=== PATIENT | male | born 1980 | race African-American/Black ===

== ENCOUNTER 2020-02-17 16:50 | Inpatient (IN) | payer OTHER ==
--- NOTE | 2020-02-17 18:05 | BHS.RME ---
Substance Use & Tx History - Substance Use History Heroin Substance amount: 8 -10 bags Frequency of use: Daily Substance route: Inhalation (ex: sniffing or snorting) Benzodiazepines Substance amount: 2 Frequency of use: Daily Substance route: Oral - Last Treatment Where was last treatment: Opioid Treatment Program (OTP) ([facility] 75 mg) CIWA Nausea/Vomitin-No Nausea/No Vomiting Muscle Tremors: None Anxiety: 0-No Anxiety, at Ease Agitation: 1-Slight > Activity Paroxysmal Sweats: No Perspiration Orientation: 1-Uncertain about Date Tacttile Disturbances: 0-None Auditory Disturbances: 0-None Visual Disturbances: 0-None Headache: 0-None Present CIWA-Ar Total Score: 2
--- NOTE | 2020-02-17 18:38 | HP ---
CIWA Score Nausea/Vomitin-No Nausea/No Vomiting Muscle Tremors: None Anxiety: 0-No Anxiety, at Ease Agitation: 1-Slight > Activity Paroxysmal Sweats: No Perspiration Orientation: 1-Uncertain about Date Tacttile Disturbances: 0-None Auditory Disturbances: 0-None Visual Disturbances: 0-None Headache: 0-None Present CIWA-Ar Total Score: 2 - Admission Criteria OASAS Guidelines: Admission for Medically Managed Detox: Requires at least one of the followin. CIWA greater than 12 2. Seizures within the past 24 hours 3. Delirium tremens within the past 24 hours 4. Hallucinations within the past 24 hours 5. Acute intervention needed for co occurring medical disorder 6. Acute intervention needed for co occurring psychiatric disorder 7. Severe withdrawal that cannot be handled at a lower level of care (continued vomiting, continued diarrhea, abnormal vital signs) requiring intravenous medication and/or fluids 8. Admission ROS [facility] Allergies/Adverse Reactions: Allergies Allergy/AdvReac Type Severity Reaction Status Date / Time No Known Allergies Allergy Verified 02/17/20 18:07 History of Present Illness: 39 y.o. male requesting detox from benzodiazepine use , reports xanax 2 /day . Pt is very poor historian due to sedation , falls asleep frequently during interview , awakened w/ difficulty w/ verbal stimuli . reports [facility] @ [facility] - no card , has 1 empty bottle dated 02/04/2020 30mg pt claims he is taking " 75 or 80 mg " /day pt has meds dated 12/04/2019 for enalapril 20, hctz 25 mg , mirtazapine 15 . Unclear compliance w/ meds . Pt 's current BP is 106/76 P 79 , will hold additional meds 2/2 risk of hypotension . PMHX : HTN Exam Limitations: Clinical Condition, Intoxication - Review of Systems Constitutional: No Symptoms Reported EENT: reports: No Symptoms Reported Respiratory: reports: No Symptoms reported Cardiac: reports: No Symptoms Reported GI: reports: No Symptoms Reported : reports: No Symptoms Reported Musculoskeletal: reports: No Symptoms Reported Integumentary: reports: No Symptoms Reported Neuro: reports: No Symptoms reported Endocrine: reports: No Symptoms Reported Hematology: reports: No Symptoms Reported Psychiatric: reports: Agitated, Disorientated Patient History - Smoking Cessation Smoking history: Unknown if ever smoked Admission Physical Exam [facility] - Physical General Appearance: Yes: Disheveled, Intoxicated HEENTM: Yes: Normocephalic, Normal Voice Respiratory: Yes: Chest Non-Tender, Lungs Clear, Normal Breath Sounds, No Respiratory Distress, No Accessory Muscle Use Neck: Yes: No masses,lesions,Nodules, Trachea in good position Cardiology: Yes: Regular Rhythm, Regular Rate, S1, S2 Abdominal: Yes: Non Tender, Soft Back: Yes: Normal Inspection Musculoskeletal: Yes: Other (staggering gait) Extremities: Yes: Normal Range of Motion, Non-Tender, Swelling (slight @ r ankle w/ vertical scar) Neurological: Yes: Motor Strength 5/5, Disoriented, Depressed Affect Integumentary: Yes: Warm - Diagnostic (1) Opioid dependence on agonist therapy Current Visit: Yes Status: Chronic (2) Cocaine use disorder Current Visit: Yes Status: Chronic (3) Sedative dependence with current use Current Visit: Yes Status: Acute (4) Benzodiazepine intoxication Current Visit: Yes Status: Acute Inpatient Rehab Admission - Rehab Decision to Admit Inpatient rehab admission?: No
[2020-02-17] MEDS ORDERED: ACETAMINOPHEN 325 MG TABLET (FP) PO PRN ×2 (19:00)
[2020-02-17] MEDS ORDERED: IBUPROFEN 400 MG TABLET (FP) PO PRN (19:00)
[2020-02-17] MEDS ORDERED: MAGNESIUM HYDROX 2400MG/30ML ORAL SUSPENSION 30 ML CUP PO PRN (19:00)
[2020-02-17] MEDS ORDERED: METHOCARBAMOL 500 MG TABLET PO PRN (19:00)
[2020-02-17] MEDS ORDERED: MENTHOL/PHENOL 1 EACH UD MM PRN (19:00)
[2020-02-17] MEDS ORDERED: BISMUTH SUBSALICYLATE 524 MG/30 ML UD PO PRN (19:00)
[2020-02-17] MEDS ORDERED: MELATONIN 5 MG TABLETS PO PRN (19:00)
[2020-02-17] MEDS ORDERED: hydrOXYzine PAMOATE 25 MG CAPSULE (FP) PO PRN (19:00)
[2020-02-17] MEDS ORDERED: MAG HYDROX/AL HYDROX/SIMETH 30 ML UNIT-DOSE CUP PO PRN (19:00)
[2020-02-17] MEDS ORDERED: MAGNESIUM CITRATE 300 ML BOTTLE PO PRN (19:00)
[2020-02-17 23:14] VITALS: BMI 24.3
[2020-02-17] MEDS: THIAMINE HCL 100 MG TABLET (FP) PO SCH (23:31)
[2020-02-18] MEDS ORDERED: diazePAM 5 MG TABLET PO PRN (00:19)
[2020-02-18] MEDS: diazePAM 5 MG TABLET PO SCH ×3 (07:25→22:35)
[2020-02-18] MEDS ORDERED: cloNIDine HCL 0.1 MG TABLET PO PRN (08:56)
--- NOTE | 2020-02-18 09:03 | PN ---
[facility] CIWA - CIWA Score Nausea/Vomitin-Mild Nausea/No Vomiting Muscle Tremors: 3 Anxiety: 3 Agitation: 1-Slight > Activity Paroxysmal Sweats: 1-Minimal Palms Moist Orientation: 0-Oriented Tacttile Disturbances: 1-Very Mild Itch/Numbness Auditory Disturbances: 0-None Visual Disturbances: 0-None Headache: 2-Mild CIWA-Ar Total Score: 12 S COWS - Scale Resting Pulse: 0= [place] 80 or Below Sweatin= Chills/Flushing Restless Observation: 0= Sits Still Pupil Size: 1= Pupils >than Normal Bone or Joint Aches: 1= Mild Discomfort Runny Nose/ Eye Tearin= None GI Upset > 30mins: 2= Nausea/Diarrhea Tremor Observation of Outstretched Hands: 2= Slight Tremor Visible Yawning Observation: 0= None Anxiety or Irritability: 2=Irritable/Anxious Goose Flesh Skin: 0=Smooth Skin COWS Score: 9 S Progress Note (SOAP) Subjective: 39 years old male admitted on 02/17/20 for benzo and opiate withdrawal sx management mr mcintyre was taking methadone 30mg po daily last dose 02/04/20 positive opiate urine toxicology upon admission methadone for opiate detox initiated ensure 120 ml po bid initiated mr mcintyre prefers suboxone maintenance program in comparison to methadone program Objective: 02/18/20 11:06 Vital Signs - 24 hr 02/17/20 02/17/20 02/18/20 23:08 23:10 00:28 Temperature 97.1 F L 97.1 F L Pulse Rate 69 69 Respiratory 18 18 18 Rate Blood Pressure 107/72 107/72 O2 Sat by Pulse 100 Oximetry (%) 02/18/20 02/18/20 02/18/20 03:23 06:35 08:54 Temperature 97.7 F 97.8 F Pulse Rate 68 60 Respiratory 18 18 20 Rate Blood Pressure 116/72 118/80 O2 Sat by Pulse 98 Oximetry (%) Laboratory Tests 02/18/20 02/18/20 08:30 08:30 WBC 3.2 L RBC 4.41 Hgb 11.7 Hct 36.4 MCV 82.5 MCH 26.5 MCHC 32.1 RDW 13.9 Plt Count 299 MPV 9.2 Sodium 141 Potassium 3.3 L Chloride 99 Carbon Dioxide 35 H Anion Gap 7 L BUN 6.8 L Creatinine 0.8 Est GFR (CKD-EPI)AfAm 129.51 Est GFR (CKD-EPI)NonAf 111.74 Random Glucose 98 Calcium 9.2 Total Bilirubin 0.8 AST 24 ALT 25 Alkaline Phosphatase 65 Total Protein 6.5 Albumin 3.1 L 02/18/20 11:08 low K+ received K+ supplement 40mEq x 1 repeat K+ serum level Assessment: 02/18/20 11:09 benzo and opiate withdrawal Plan: valium and methadone regiment
--- NOTE | 2020-02-18 09:45 | CONSULT ---
[facility] Psychiatric Consult - Data Date of interview: 02/18/20 Admission source: [facility] Identifying data: Patient is a 39 year old single male, father of one, unemployed, domiciled, and is supported by [facility]. This is patient's first admission to detox at [facility]. Patient admitted to for opioid, cocaine and sedative dependence. Substance Abuse History: History of opioid, benzodiazepine, and cocaine use. Medical History: hypertension Psychiatric History: Mr. Gallegos's first psychiatric contact occured one year ago at the [facility] clinic after seeing a psychiatrist due to feeling sad and depressed. He was diagnosed with depression and prescribed Zoloft 50mg daily + Mirtzapine 15mg HS. Mr. Gallegos reports not seeing the psychiatrist in several months. Patient denies history of psychiatric hospitalization and suicide attempt. At present patient reports difficulty sleeping. Physical/Sexual Abuse/Trauma History: denies. Mental Status Exam - Mental Status Exam Alert and Oriented to: Time, Place, Person Cognitive Function: Good Patient Appearance: Well Groomed Mood: Withdrawn Affect: Mood Congruent Patient Behavior: Fatigued Speech Pattern: Appropriate Voice Loudness: Mildly Soft/Quiet Thought Process: Goal Oriented Thought Disorder: Not Present Hallucinations: Denies Suicidal Ideation: Denies Homicidal Ideation: Denies Insight/Judgement: Poor Sleep: Poorly Appetite: Fair Muscle strength/Tone: Normal Gait/Station: Normal Psychiatric Findings - Problem List ([place] 1, 2,3) (1) Substance induced mood disorder Current Visit: Yes Status: Acute (2) Benzodiazepine intoxication Current Visit: Yes Status: Acute (3) Sedative dependence with current use Current Visit: Yes Status: Acute (4) Cocaine use disorder Current Visit: Yes Status: Chronic (5) Opioid dependence on agonist therapy Current Visit: Yes Status: Chronic (6) Substance-induced sleep disorder Current Visit: Yes Status: Acute (7) History of depression Current Visit: Yes Status: Acute - Initial Treatment Plan Initial Treatment Plan: Psychoeducation provided. Detoxification in progress. Will order Zoloft 50mg daily + Remeron 15mg HS. Benefits and side effects discussed. Verbal consent given.
[2020-02-18] MEDS ORDERED: METHADONE HCL 10 MG TABLET (FOR DETOX USE ONLY) PO ONE (10:00)
[2020-02-18] MEDS: PRENATAL VITAMINS W/ FOLIC ACID TABLET (FP) PO SCH (10:35)
[2020-02-18 10:40] LABS: HEMATOCRIT 36.4 % (35.4-49); HEMOGLOBIN 11.7 GM/dL (11.7-16.9); MCH 26.5 pg (25.7-33.7); MCHC 32.1 g/dl (32.0-35.9); MEAN CELL VOLUME 82.5 fl (80-96); MEAN PLT VOLUME 9.2 fl (7.5-11.1); PLATELET COUNT 299 K/MM3 (134-434); RBC 4.41 M/mm3 (4.00-5.60); RDW 13.9 % (11.9-15.9); WHITE BLOOD COUNT 3.2 K/mm3 (4.0-10.0)
[2020-02-18 10:49] LABS: ALBUMIN 3.1 g/dl (3.4-5.0); BLOOD UREA NITROGEN 6.8 mg/dL (7-18); CALCIUM 9.2 mg/dL (8.5-10.1); CREATININE 0.8 mg/dL (0.55-1.3); POTASSIUM 3.3 mmol/L (3.5-5.1)
[2020-02-18 10:51] LABS: BILIRUBIN,TOTAL 0.8 mg/dL (0.2-1); TOT PROT 6.5 g/dl (6.4-8.2)
[2020-02-18] MEDS ORDERED: POTASSIUM CHLORIDE ORAL LIQUID 20 MEQ/15 ML PO ONE (11:07)
[2020-02-18] MEDS: SERTRALINE HCL 50 MG TABLET (FP) PO SCH (11:46)
--- NOTE | 2020-02-18 14:08 | EKG ---
Test Reason : Blood Pressure : / mmHG Vent. Rate : 065 BPM Atrial Rate : 065 BPM P-R Int : 168 ms QRS Dur : 100 ms QT Int : 444 ms P-R-T Axes : 029 022 -17 degrees QTc Int : 461 ms NORMAL SINUS RHYTHM T WAVE ABNORMALITY, CONSIDER ANTERIOR ISCHEMIA PROLONGED QT ABNORMAL ECG NO PREVIOUS ECGS AVAILABLE Confirmed by CURT LORD MD ([id number]) on 02/18/2020 2:08:07 PM Referred By: Confirmed By:CURT LORD MD
--- NOTE | 2020-02-18 15:28 | EKG ---
Test Reason : Blood Pressure : / mmHG Vent. Rate : 060 BPM Atrial Rate : 060 BPM P-R Int : 178 ms QRS Dur : 110 ms QT Int : 434 ms P-R-T Axes : 030 014 -01 degrees QTc Int : 434 ms NORMAL SINUS RHYTHM NONSPECIFIC T WAVE ABNORMALITY ABNORMAL ECG WHEN COMPARED WITH ECG OF 17-FEB-2020 22:36, T WAVE INVERSION NO LONGER EVIDENT IN ANTERIOR LEADS Confirmed by POP CABRERA, CURT ([id number]) on 02/18/2020 3:27:43 PM Referred By: Confirmed By:CURT LORD MD
[2020-02-18] MEDS: THIAMINE HCL 100 MG TABLET (FP) PO SCH (22:35)
[2020-02-18] MEDS: MIRTAZAPINE 15 MG TABLET (FP) PO SCH (22:35)
[2020-02-19] MEDS: diazePAM 5 MG TABLET PO SCH ×2 (06:09→17:23)
[2020-02-19] MEDS ORDERED: METHADONE HCL 5 MG TABLET (FOR DETOX USE ONLY) PO ONE (10:00)
[2020-02-19] MEDS: PRENATAL VITAMINS W/ FOLIC ACID TABLET (FP) PO SCH (10:17)
[2020-02-19] MEDS: SERTRALINE HCL 50 MG TABLET (FP) PO SCH (10:18)
--- NOTE | 2020-02-19 12:52 | PN ---
[facility] CIWA - CIWA Score Nausea/Vomitin-Mild Nausea/No Vomiting Muscle Tremors: 1-None Visible, but [place] Anxiety: 0-No Anxiety, at Ease Agitation: 0-Normal Activity Paroxysmal Sweats: 1-Minimal Palms Moist Orientation: 0-Oriented Tacttile Disturbances: 0-None Auditory Disturbances: 0-None Visual Disturbances: 0-None Headache: 0-None Present CIWA-Ar Total Score: 3 S COWS - Scale Resting Pulse: 0= [place] 80 or Below Sweatin= Chills/Flushing Restless Observation: 1= Difficult to Sit Still Pupil Size: 0= Normal to Room Light Bone or Joint Aches: 1= Mild Discomfort Runny Nose/ Eye Tearin= None GI Upset > 30mins: 1= Stomach Cramp Tremor Observation of Outstretched Hands: 0= None Yawning Observation: 0= None Anxiety or Irritability: 0= None Goose Flesh Skin: 0=Smooth Skin COWS Score: 4 S Progress Note (SOAP) Subjective: complaints of GI upset Objective: 02/19/20 12:51 PE Gnl: WDWN MS: nl mentation Motor: moves well Coord: nl Laboratory Tests 02/18/20 02/18/20 02/18/20 08:30 08:30 08:30 WBC 3.2 L RBC 4.41 Hgb 11.7 Hct 36.4 MCV 82.5 MCH 26.5 MCHC 32.1 RDW 13.9 Plt Count 299 MPV 9.2 Sodium Potassium Chloride Carbon Dioxide Anion Gap BUN Creatinine Est GFR (CKD-EPI)AfAm Est GFR (CKD-EPI)NonAf Random Glucose Calcium Total Bilirubin AST ALT Alkaline Phosphatase Total Protein Albumin Syphilis Serology Non-reactive HIV Ag/Ab Combo Qual Negative 02/18/20 02/19/20 08:30 07:30 WBC RBC Hgb Hct MCV MCH MCHC RDW Plt Count MPV Sodium 141 Potassium 3.3 L 3.5 Chloride 99 Carbon Dioxide 35 H Anion Gap 7 L BUN 6.8 L Creatinine 0.8 Est GFR (CKD-EPI)AfAm 129.51 Est GFR (CKD-EPI)NonAf 111.74 Random Glucose 98 Calcium 9.2 Total Bilirubin 0.8 AST 24 ALT 25 Alkaline Phosphatase 65 Total Protein 6.5 Albumin 3.1 L Syphilis Serology HIV Ag/Ab Combo Qual Home Medication List Medication Instructions Recorded Confirmed Type Enalapril Maleate [Vasotec] 20 mg PO AM 02/17/20 02/17/20 History Hydrochlorothiazide [Hctz -] 25 mg PO DAILY 02/17/20 02/17/20 History Mirtazapine 15 mg PO HS 02/17/20 02/17/20 History Active Medications Generic Name Dose Route Start Last Admin Trade Name Freq PRN Reason Stop Dose Admin Acetaminophen 650 mg 02/17/20 19:00 Tylenol - PO Q6H PRN PAIN LEVEL 4 - 6 Acetaminophen 650 mg 02/17/20 19:00 Tylenol - PO Q6H PRN FEVER Al Hydroxide/Mg Hydroxide 30 ml 02/17/20 19:00 Mylanta Oral Suspension - PO Q6H PRN DYSPEPSIA Bismuth Subsalicylate 524 mg 02/17/20 19:00 Pepto-Bismol - PO Q1H PRN DIARRHEA Clonidine 0.1 mg 02/18/20 08:56 Catapres - PO 02/19/20 23:59 Q4H PRN Withdrawal Symptoms Diazepam 5 mg 02/19/20 06:00 02/19/20 06:09 Valium - PO 02/19/20 18:01 5 mg Q12H MARTY Administration Diazepam 5 mg 02/20/20 06:00 Valium - PO 02/20/20 06:01 ONCE ONE Diazepam 10 mg 02/18/20 00:19 Valium - PO 02/21/20 00:18 Q4H PRN WITHDRAWAL(CONT SUBST) Eucalyptus/Menthol/Phenol/Sorbitol 1 each 02/17/20 19:00 Cepastat Lozenge - MM 02/23/20 19:01 Q4H PRN SORE THROAT Hydroxyzine Pamoate 25 mg 02/17/20 19:00 02/17/20 23:30 Vistaril - PO 02/23/20 19:01 25 mg Q4H PRN Administration ANXIETY Ibuprofen 400 mg 02/17/20 19:00 Motrin - PO Q6H PRN PAIN LEVEL 1 - 3 Magnesium Citrate 300 ml 02/17/20 19:00 Citroma - PO Q48H PRN CONSTIPATION Magnesium Hydroxide 30 ml 02/17/20 19:00 Milk Of Magnesia - PO PRN PRN CONSTIPATION Melatonin 5 mg 02/17/20 19:00 02/17/20 23:31 Melatonin PO 5 mg HS PRN Administration INSOMNIA Methadone HCl 10 mg 02/20/20 10:00 Dolophine - PO 02/20/20 10:01 ONCE ONE Methadone HCl 5 mg 02/21/20 06:00 Dolophine - PO 02/21/20 06:01 ONCE ONE Methocarbamol 500 mg 02/17/20 19:00 Robaxin - PO 02/23/20 19:01 Q6H PRN MUSCLE SPASMS Mirtazapine 15 mg 02/18/20 22:00 02/18/20 22:35 Remeron - PO 15 mg HS MARTY Administration Multivit/Folic Acid/Iron 1 tab 02/18/20 10:00 02/19/20 10:17 Vitamins (Sjr) - PO 1 tab DAILY MARTY Administration Sertraline HCl 50 mg 02/18/20 11:00 02/19/20 10:18 Zoloft - PO 50 mg DAILY MARTY Administration Thiamine HCl 100 mg 02/17/20 22:00 02/18/20 22:35 Vitamin B1 - PO 100 mg HS MARTY Administration Vital Signs Temperature 96.9 F L 02/19/20 08:57 Pulse Rate 65 02/19/20 08:57 Respiratory Rate 18 02/19/20 08:57 Blood Pressure 121/83 02/19/20 08:57 O2 Sat by Pulse Oximetry (%) 97 02/19/20 05:15 Assessment: 1. Benzodiazepine use disorder 2. Opioid use disorder Review of H&P: reports [facility]MTP @ [facility] - no card , has 1 empty bottle dated 02/04/2020 30mg pt claims he is taking " 75 or 80 mg " /day Plan: 1. Diazepam protocol 2. Methadone protocol 3. COVID pending
[2020-02-19] MEDS: ONDANSETRON *ODT* 4 MG TABLET SL PRN (13:11)
[2020-02-19] MEDS: THIAMINE HCL 100 MG TABLET (FP) PO SCH (22:13)
[2020-02-19] MEDS: MIRTAZAPINE 15 MG TABLET (FP) PO SCH (22:13)
[2020-02-20] MEDS ORDERED: diazePAM 5 MG TABLET PO ONE (06:00)
[2020-02-20] MEDS: ONDANSETRON *ODT* 4 MG TABLET SL PRN (09:12)
[2020-02-20] MEDS ORDERED: METHADONE HCL 10 MG TABLET (FOR DETOX USE ONLY) PO ONE (10:00)
[2020-02-20] MEDS: SERTRALINE HCL 50 MG TABLET (FP) PO SCH (10:05)
[2020-02-20] MEDS: PRENATAL VITAMINS W/ FOLIC ACID TABLET (FP) PO SCH (10:05)
--- NOTE | 2020-02-20 11:38 | PN ---
[facility] CIWA - CIWA Score Nausea/Vomitin-Mild Nausea/No Vomiting Muscle Tremors: None Anxiety: 2 Agitation: 0-Normal Activity Paroxysmal Sweats: No Perspiration Orientation: 0-Oriented Tacttile Disturbances: 0-None Auditory Disturbances: 0-None Visual Disturbances: 0-None Headache: 0-None Present CIWA-Ar Total Score: 3 BHS COWS - Scale Resting Pulse: 0= [place] 80 or Below Sweatin= No chills or Flushing Restless Observation: 0= Sits Still Pupil Size: 0= Normal to Room Light Bone or Joint Aches: 2= Severe Diffuse Aches Runny Nose/ Eye Tearin= None GI Upset > 30mins: 1= Stomach Cramp Tremor Observation of Outstretched Hands: 0= None Yawning Observation: 0= None Anxiety or Irritability: 1=Feels Anxious/Irritable Goose Flesh Skin: 0=Smooth Skin COWS Score: 4 S Progress Note (SOAP) Subjective: c/o mild withdrawal symptoms. Objective: 02/20/20 11:37 Vital Signs 02/20/20 02/20/20 06:30 09:08 Temperature 97.3 F L Pulse Rate 67 Respiratory 18 18 Rate Blood Pressure 113/89 Laboratory Last Values WBC 3.2 K/mm3 (4.0-10.0) L 02/18/20 08:30 RBC 4.41 M/mm3 (4.00-5.60) 02/18/20 08:30 Hgb 11.7 GM/dL (11.7-16.9) 02/18/20 08:30 Hct 36.4 % (35.4-49) 02/18/20 08:30 MCV 82.5 fl (80-96) 02/18/20 08:30 MCH 26.5 pg (25.7-33.7) 02/18/20 08:30 MCHC 32.1 g/dl (32.0-35.9) 02/18/20 08:30 RDW 13.9 % (11.9-15.9) 02/18/20 08:30 Plt Count 299 K/MM3 (134-434) 02/18/20 08:30 MPV 9.2 fl (7.5-11.1) 02/18/20 08:30 Sodium 141 mmol/L (136-145) 02/18/20 08:30 Potassium 3.5 mmol/L (3.5-5.1) 02/19/20 07:30 Chloride 99 mmol/L (98-107) 02/18/20 08:30 Carbon Dioxide 35 mmol/L (21-32) H 02/18/20 08:30 Anion Gap 7 MMOL/L (8-16) L 02/18/20 08:30 BUN 6.8 mg/dL (7-18) L 02/18/20 08:30 Creatinine 0.8 mg/dL (0.55-1.3) 02/18/20 08:30 Est GFR (CKD-EPI)AfAm 129.51 02/18/20 08:30 Est GFR (CKD-EPI)NonAf 111.74 02/18/20 08:30 Random Glucose 98 mg/dL (74-106) 02/18/20 08:30 Calcium 9.2 mg/dL (8.5-10.1) 02/18/20 08:30 Total Bilirubin 0.8 mg/dL (0.2-1) 02/18/20 08:30 AST 24 U/L (15-37) 02/18/20 08:30 ALT 25 U/L (13-61) 02/18/20 08:30 Alkaline Phosphatase 65 U/L (45-117) 02/18/20 08:30 Total Protein 6.5 g/dl (6.4-8.2) 02/18/20 08:30 Albumin 3.1 g/dl (3.4-5.0) L 02/18/20 08:30 Syphilis Serology Non-reactive (NONREACTIVE) 02/18/20 08:30 COVID-19 ([facility]PINO[facility]) Not detected (Not Detected) 02/17/20 22:10 HIV Ag/Ab Combo Qual Negative (NEGATIVE) 02/18/20 08:30 Labs noted. Assessment: 02/20/20 11:37 AOX3, in no acute respiratory distress. Full ROM, ambulating in the unit. Mild Withdrawal symptoms. For d/c tomorrow. Plan: continue detox. D/C in AM.
[2020-02-20] MEDS: THIAMINE HCL 100 MG TABLET (FP) PO SCH (22:24)
[2020-02-20] MEDS: MIRTAZAPINE 15 MG TABLET (FP) PO SCH (22:24)
[2020-02-21] MEDS ORDERED: METHADONE HCL 5 MG TABLET (FOR DETOX USE ONLY) PO ONE (06:00)
[2020-02-21 06:24] VITALS: BP 134/92; PULSE 61; TEMP 97.5
[2020-02-21] MEDS: PRENATAL VITAMINS W/ FOLIC ACID TABLET (FP) PO SCH (08:59)
[2020-02-21] MEDS: SERTRALINE HCL 50 MG TABLET (FP) PO SCH (08:59)
--- NOTE | 2020-02-21 10:41 | DS ---
[facility] Detox Discharge Summary Admission Date: 02/17/20 Discharge Date: 02/21/20 - History Present History: Opioid Dependence, Sedative Dependence Additional Comments: 39 years old male admitted on 02/17/20 for benzo and opiate withdrawal sx management treated with valium and methadone detox regiments seen by psychiatrist amado sewell mr mcintyre has completed the valium and methadone regiments and is tolerated well alert oriented x 3 speech clearly coherently cardiac [id number] regular rate rhythm respiratory clear lung sounds bilaterally on auscultation skin warm and dry Pertinent Past History: time for discharge 35 minutes - Physical Exam Results Vital Signs: Vital Signs Temperature 97.5 F L 02/21/20 05:41 Pulse Rate 61 02/21/20 05:41 Respiratory Rate 18 02/21/20 05:41 Blood Pressure 134/92 02/21/20 05:41 O2 Sat by Pulse Oximetry (%) 98 02/21/20 05:41 Pertinent Admission Physical Exam Findings: benzo and opiate withdrawal Vital Signs - 24 hr 02/20/20 02/20/20 02/20/20 12:41 16:57 20:53 Temperature 97.5 F L 97.8 F 97.8 F Pulse Rate 66 58 L 67 Respiratory 18 18 18 Rate Blood Pressure 130/88 137/86 126/88 O2 Sat by Pulse 100 100 Oximetry (%) 02/21/20 02/21/20 00:30 05:41 Temperature 97.5 F L Pulse Rate 61 Respiratory 18 18 Rate Blood Pressure 134/92 O2 Sat by Pulse 98 Oximetry (%) Laboratory Tests 02/17/20 02/18/20 02/18/20 22:10 08:30 08:30 WBC RBC Hgb Hct MCV MCH MCHC RDW Plt Count MPV Sodium Potassium Chloride Carbon Dioxide Anion Gap BUN Creatinine Est GFR (CKD-EPI)AfAm Est GFR (CKD-EPI)NonAf Random Glucose Calcium Total Bilirubin AST ALT Alkaline Phosphatase Total Protein Albumin Syphilis Serology Non-reactive COVID-19 ([facility]) Not detected HIV Ag/Ab Combo Qual Negative 02/18/20 02/18/20 02/19/20 08:30 08:30 07:30 WBC 3.2 L RBC 4.41 Hgb 11.7 Hct 36.4 MCV 82.5 MCH 26.5 MCHC 32.1 RDW 13.9 Plt Count 299 MPV 9.2 Sodium 141 Potassium 3.3 L 3.5 Chloride 99 Carbon Dioxide 35 H Anion Gap 7 L BUN 6.8 L Creatinine 0.8 Est GFR (CKD-EPI)AfAm 129.51 Est GFR (CKD-EPI)NonAf 111.74 Random Glucose 98 Calcium 9.2 Total Bilirubin 0.8 AST 24 ALT 25 Alkaline Phosphatase 65 Total Protein 6.5 Albumin 3.1 L Syphilis Serology COVID-19 ([facility]) HIV Ag/Ab Combo Qual lab noted K+ acceptable range - Treatment Hospital Course: Detox Protocol Followed, Detoxed Safely, Responded well, Discharged Condition Good, Rehab Referral Accepted Patient has Accepted a [facility] - Medication Discharge Medications: Ambulatory Orders Enalapril Maleate [Vasotec] 20 mg PO AM 02/17/20 Hydrochlorothiazide [Hctz -] 25 mg PO DAILY 02/17/20 Mirtazapine 15 mg PO HS 02/17/20 - Diagnosis (1) Opioid abuse, uncomplicated Status: Acute (2) Sedative dependence with current use Status: Acute (3) Substance induced mood disorder Status: Suspected (4) Hypertension Status: Chronic Qualifiers: Hypertension type: essential hypertension Qualified Code(s): I10 - Essential (primary) hypertension - AMA Did Patient Leave Against Medical Advice: No CIWA Score - CIWA Score Nausea/Vomitin-Mild Nausea/No Vomiting Muscle Tremors: None Anxiety: 1-Mildly Anxious Agitation: 0-Normal Activity Paroxysmal Sweats: No Perspiration Orientation: 0-Oriented Tacttile Disturbances: 0-None Auditory Disturbances: 0-None Visual Disturbances: 0-None Headache: 0-None Present CIWA-Ar Total Score: 2 COWS (PN) - Opiate Withdrawal Resting Pulse: 0= [place] 80 or Below Sweatin= No chills or Flushing Restless Observation: 0= Sits Still Pupil Size: 0= Normal to Room Light Bone or Joint Aches: 0= None Runny Nose/ Eye Tearin= None GI Upset > 30mins: 0= None Tremor Observation of Outstretched Hands: 1= Tremor [place], Not Seen Yawning Observation: 0= None Anxiety or Irritability: 1=Feels Anxious/Irritable Goose Flesh Skin: 0=Smooth Skin COWS Score: 2
== END 2020-02-21 09:10 | disposition home or self-care (01) | DRG 773 ==
LOC: YASAS 16:50 → Y3N 21:47
PROVIDERS: ADMIT Allergy & Immunology; ATTEND Allergy & Immunology
PROC: HZ2ZZZZ Detoxification Services for Substance Abuse Treatment (ICD-10-PCS; principal; 2020-02-17)
DX: F11.23 Opioid dependence with withdrawal (principal); F13.230 Sedative, hypnotic or anxiolytic dependence with withdrawal, uncomplicated; F14.20 Cocaine dependence, uncomplicated; F19.24 Other psychoactive substance dependence with psychoactive substance-induced mood disorder; F19.282 Other psychoactive substance dependence with psychoactive substance-induced sleep disorder; F32.9 Major depressive disorder, single episode, unspecified; I10 Essential (primary) hypertension; R26.0 Ataxic gait; Z56.0 Unemployment, unspecified
CPT/HCPCS: 36415; 80053; 84132; 85027; 86780; 87389; 93005; 93010; Q0162; U0003